=== PATIENT | male | born 1975 | race Two or more races ===

== ENCOUNTER 2019-02-19 08:29 | Day surgery (SDC) | payer BC ==
[2019-02-12 11:16] LABS: Basophils # (auto) 0.1 uL; Basophils % (auto) 1.1 % (0.0-2.0); Eosinophils # (auto) 0.3 uL; Eosinophils % (auto) 5.5 % (0.0-7.0); Hematocrit 50.4 % (41.0-53.0); Lymphocytes # (auto) 2.1 uL; Mean Corpuscular Hemoglobin 32.8 pg (28.0-32.0); Mean Corpuscular Hgb Conc. 33.8 g/dL (32.0-36.0); Mean Corpuscular Volume 97.2 fL (80.0-100.0); Monocytes # (auto) 0.3 uL; Monocytes % (auto) 6.6 % (0.0-12.0); Neutrophils # (auto) 2.4 uL; Neutrophils % (auto) 45.8 % (37.0-80.0); Nucleated Red Blood Cells % 0.1 %; Platelet Count (auto) 193 10^3/uL (140-450); Red Blood Cells 5.19 10^6/uL (4.5-5.90); Red Cell Distribution Width 13.1 % (11.8-14.3); White Blood Cell 5.2 10^3/uL (4.4-10.8)
[2019-02-12 11:19] LABS: Albumin 4.3 g/dL (3.4-5.0); BUN/Creatinine Ratio 17.6; Calcium 9.5 mg/dL (8.5-10.1); Potassium 4.6 mmol/L (3.5-5.1)
[2019-02-12 11:22] LABS: Bilirubin, Total 0.9 mg/dL (0.2-1.0); Total Protein 7.8 g/dL (6.4-8.2)
[2019-02-12 11:38] LABS: Partial Thromboplastin Time 27.5 sec (23.64-32.05)
[2019-02-12 12:36] LABS: Urine Bacteria NONE SEEN /hpf (None Seen); Urine Blood Negative /uL (Negative); Urine Specific Gravity 1.026 (1.001-1.035); Urine WBC 1 /hpf (0 - 3)
[~2019-02-19] VITALS: Ht 188 cm; Wt 111.1 kg
[~2019-02-19 08:29] MED LIST: GABA300C10 PO; HYDR-531 PO; TRAM-711 PO
[2019-02-19] MEDS ORDERED: InsuLIN REG 1unit/0.01ml Soln (100units/ml) ONE ×2 (10:01→10:56)
[2019-02-19] MEDS ORDERED: ROPIVACAINE 0.5% (5MG/ML) 20ML AMPULE IJ ONE (10:57)
[2019-02-19] MEDS ORDERED: ceFAZolin 1GM/50ML 50 ML IV ONE (11:07)
[2019-02-19] MEDS ORDERED: fentaNYL CITRATE 100 MCG/2 ML VL ONE (11:09)
[2019-02-19] MEDS ORDERED: MIDAZOLAM HCL 1MG/1ML-2 ML VIAL ONE (11:09)
[2019-02-19] MEDS ORDERED: PROPOFOL 10 MG/ML 20 ML IV ONE (11:10)
[2019-02-19 12:29] VITALS: BP 134/83
== END 2019-02-19 12:39 | disposition home or self-care (01) ==
LOC: SUR 08:29
PROVIDERS: ATTEND Podiatrist Foot & Ankle Surgery
DX: M20.11 Hallux valgus (acquired), right foot (principal); M20.41 Other hammer toe(s) (acquired), right foot; F17.210 Nicotine dependence, cigarettes, uncomplicated; E11.9 Type 2 diabetes mellitus without complications; Z98.890 Other specified postprocedural states
CPT/HCPCS: 28285; 28296; 36415; 73620; 80053; 81001; 82962; 85025; 85610; 85730; 88304; 88311; 93005; C1713; C1769; J0690; J1815; J2250; J2704; J2795; J3010; L3260; Q4137